=== PATIENT | female | born 1945 | race Caucasian/White ===

== ENCOUNTER → 2019-05-17 15:01 | Outpatient (BNVA) | payer MEDICARE, SELFPAY | PROVIDERS: Family Provider Family Medicine; PCP Family Medicine; Referring Provider Licensed Practical Nurse; Visit Provider Psychiatry & Neurology Neurology | DX: M54.12 Radiculopathy, cervical region (principal) | CPT/HCPCS: 95886; 95910 ==

== ENCOUNTER → 2019-06-06 13:05 | Outpatient (BNVA) | payer MEDICARE, SELFPAY | PROVIDERS: Family Provider Family Medicine; PCP Family Medicine; Visit Provider Urology | DX: N39.0 Urinary tract infection, site not specified (principal) | CPT/HCPCS: 81001 ==

== ENCOUNTER 2019-07-05 14:47 | Outpatient (CLI) | payer MEDICARE, SELFPAY ==
--- NOTE | 2019-07-05 15:00 | CT_ITS ---
WS: [id number] CT LUMBAR SPINE, noncontrast. HISTORY: Low back pain TECHNIQUE: Contiguous 2.5 mm axial imaging are performed. Sagittal and coronal reformats are submitte d and reviewed. All CT scans at [facility] use at least one of these dose optimization te chniques: automated exposure control; mA and/or kV adjustment per patient size (includes targeted exa ms where dose is matched to clinical indication); or iterative reconstruction. IV contrast: None DLP: 1766.95 mGycm COMPARISON: None available. Moderate RIGHT convex rotoscoliosis of the lumbar spine. No fractures. Osteopenia with endplate osteo phytes at all levels. Most severe stenosis at the L4-5 disc level. There is vacuum disc phenomenon at L4-5. No pars defects. L1-2: Asymmetric disc bulging, greatest to the RIGHT with no stenosis. There is an osteophyte from th e LEFT facet encroaching into the posterior LEFT lateral thecal sac. L2-3: Mild osteophytic ridging and disc bulging. No stenosis. L3-4: Diffuse asymmetric disc bulging extending greatest to the LEFT. No significant stenosis. L4-5: Moderate diffuse osteophytic ridging and disc bulging. Mild encroachment upon the ventral theca l sac. Very slight RIGHT subarticular recess stenosis and bilateral foraminal stenosis. L5-S1: Central disc protrusion with mild contact on the ventral thecal sac. No stenosis. Nerve roots exit without difficulty. Bilateral SI joint sclerosis. No erosions. Atherosclerosis within the aorta with no aneurysm. There i s a peripherally calcified mass extending posteriorly from the LEFT kidney. Additional more cortical- based mass inferiorly with calcification. Cannot accurately described on this unenhanced study. These are probably complex cysts. These masses were both identified on the CT from 03/16/2017 without incr ease in size. On the water treatment operator radiograph or loculated calcifications in the RIGHT pelvis which are probably related to uterine fibroid. Also noted on the prior radiograph of 12/10/2012 but the extent of calcification has increased. CT/CT lumbar spine wo con* [id number] IMPRESSION: 1. Moderate rotoscoliosis lumbar spine with convexity to the RIGHT. 2. Facet arthropathy and asymmetric disc bulging throughout the lumbar spine. No significant stenosis. 3. Mild RIGHT subarticular recess stenosis and bilateral foraminal stenosis at L4-5. 4. Central disc protrusion with minimal contact on the thecal sac at L5-S1. 5. Advanced degenerative disc disease at L4-5.
--- NOTE | 2019-07-05 15:15 | XR_ITS ---
WS: [id number] LATERAL LUMBAR SPINE: 3 view. Lateral radiographs are performed in upright neutral, flexion and extension to the patient's toleranc e. HISTORY: Low back pain COMPARISON: None available. Diffuse osteopenia. Posterior lumbar alignment is normal taking into consideration the rotation of th e vertebral bodies. Asymmetric disc space narrowing due to rotary scoliosis. With flexion and extensi on the alignment remains normal without instability. Facet joint arthropathy most significant at L4-5 and L5-S1. Scattered calcifications in aorta. XR/XR lumbar spine f/e only [id number] IMPRESSION: 1. Osteopenia. 2. Rotoscoliosis with no flexion/extension instability.
== END 2019-07-05 14:48 | disposition home or self-care (01) ==
LOC: RADWPI 14:52
PROVIDERS: Family Provider Family Medicine; PCP Family Medicine; Visit Provider Licensed Practical Nurse
DX: M85.88 Other specified disorders of bone density and structure, other site (principal); M48.061 Spinal stenosis, lumbar region without neurogenic claudication; M51.27 Other intervertebral disc displacement, lumbosacral region; M47.896 Other spondylosis, lumbar region; M54.5 Low back pain; M79.605 Pain in left leg
CPT/HCPCS: 72120; 72131

== ENCOUNTER 2019-08-28 09:26 | Outpatient (CLI) | payer MEDICARE, SELFPAY ==
--- NOTE | 2019-08-28 09:30 | MR_ITS ---
WS: [id number] MRI LUMBAR SPINE NONCONTRAST HISTORY: Low back pain COMPARISON: 07/05/2019 TECHNIQUE: Sagittal and axial multisequence imaging is submitted. Increase in cervical lordosis and thoracic kyphosis. Multilevel degenerative changes throughout the c ervical and thoracic spine without cord compression. Straightening of the normal lumbar lordosis. Mild S-shaped curvature thoracolumbar spine. Reactive ma rrow edema in the adjacent endplates of L4 and L5. No acute fracture. Mild disc space narrowing and desiccation throughout the lumbar spine, most significant at L4-5. Conus terminates normally at L1-2 disc level. L1-L2: Asymmetric LEFT facet joint arthritis. Facet osteophytes encroach upon the LEFT posterior thec al sac. No stenosis. L2-L3: Mild facet and ligamentum flavum arthritis. L3-L4: Very mild annular disc bulging and osteophytic ridging. Facet joint arthritis and ligamentum f lavum arthritis. No stenosis. L4-L5: Diffuse annular disc bulging and osteophytic ridging. Disc material contacts the subarticular recesses and the L5 nerve roots. Mild flattening of the ventral thecal sac. No focal disc protrusion. Mild subarticular recess stenosis. Nerve roots are becoming clumped within the periphery of the thec al sac. Mild RIGHT foraminal narrowing. L5-S1: Moderate central LEFT paracentral and proximal foraminal disc protrusion causing contact and d eformity of the ventral thecal sac. There is very slight contact and displacement of the LEFT S1 nerv e root. Bilateral foramina are widely patent. Incompletely visualized cyst within the LEFT kidney. MR/MR lumbar spine wo con* [id number] IMPRESSION: 1. Moderate degenerative disc disease and spondylosis with reactive marrow [place] ma at L4-5. 2. Moderate central and LEFT paracentral and proximal foraminal disc protrusio n at L5-S1. Very minimal contact with no displacement on the LEFT S1 nerve root . 3. Mild bilateral subarticular recess stenosis and mild RIGHT foraminal stenos is at L4-5. 4. 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 5. Thoracolumbar scoliosis. Mild curvature lumbar spine to the RIGHT.
== END 2019-08-28 09:27 | disposition home or self-care (01) ==
LOC: RADWPI 09:29
PROVIDERS: Family Provider Family Medicine; PCP Family Medicine; Visit Provider Licensed Practical Nurse
DX: M51.36 Other intervertebral disc degeneration, lumbar region (principal); M47.816 Spondylosis without myelopathy or radiculopathy, lumbar region; M51.27 Other intervertebral disc displacement, lumbosacral region; M41.85 Other forms of scoliosis, thoracolumbar region
CPT/HCPCS: 72148

== ENCOUNTER → 2020-03-05 13:07 | Outpatient (BNVA) | payer MEDICARE, SELFPAY | PROVIDERS: Family Provider Family Medicine; PCP Family Medicine; Visit Provider Licensed Practical Nurse | DX: M50.020 Cervical disc disorder with myelopathy, mid-cervical region, unspecified level (principal); M51.17 Intervertebral disc disorders with radiculopathy, lumbosacral region | CPT/HCPCS: 99213 ==

== ENCOUNTER → 2020-03-20 11:37 | Outpatient (BNVA) | payer MEDICARE, SELFPAY | PROVIDERS: Family Provider Family Medicine; PCP Family Medicine; Referring Provider Licensed Practical Nurse; Visit Provider Anesthesiology Pain Medicine | DX: M51.16 Intervertebral disc disorders with radiculopathy, lumbar region (principal); M47.816 Spondylosis without myelopathy or radiculopathy, lumbar region; M50.90 Cervical disc disorder, unspecified, unspecified cervical region; M47.812 Spondylosis without myelopathy or radiculopathy, cervical region; M79.605 Pain in left leg | CPT/HCPCS: 99204 ==

== ENCOUNTER → 2020-04-01 12:31 | Outpatient (BNVA) | payer MEDICARE, SELFPAY | PROVIDERS: Family Provider Family Medicine; PCP Family Medicine; Visit Provider Anesthesiology Pain Medicine | DX: M47.812 Spondylosis without myelopathy or radiculopathy, cervical region (principal); M54.2 Cervicalgia | CPT/HCPCS: 64490; 64491; 64492; J3490 ==

== ENCOUNTER → 2020-04-15 09:49 | Outpatient (BNVA) | payer MEDICARE, SELFPAY | PROVIDERS: Family Provider Family Medicine; PCP Family Medicine; Visit Provider Anesthesiology Pain Medicine | DX: M54.2 Cervicalgia (principal); M54.5 Low back pain; M79.605 Pain in left leg; M47.812 Spondylosis without myelopathy or radiculopathy, cervical region; M47.816 Spondylosis without myelopathy or radiculopathy, lumbar region; M51.16 Intervertebral disc disorders with radiculopathy, lumbar region | CPT/HCPCS: 99214 ==

== ENCOUNTER → 2020-04-23 13:48 | Outpatient (BNVA) | payer MEDICARE, SELFPAY | PROVIDERS: Family Provider Family Medicine; PCP Family Medicine; Visit Provider Anesthesiology Pain Medicine | DX: G89.29 Other chronic pain (principal); M50.90 Cervical disc disorder, unspecified, unspecified cervical region | CPT/HCPCS: 62321; J1100 ==

== ENCOUNTER 2020-04-30 09:43 | Outpatient (CLI) | payer MEDICARE, SELFPAY ==
--- NOTE | 2020-04-30 09:51 | MM_ITS ---
WS: [id number] BILATERAL DIGITAL SCREENING MAMMOGRAPHY WITH CAD CLINICAL INFORMATION: SCREENING HISTORY: Screening mammogram. No current complaints. COMPARISON: TECHNIQUE: Bilateral CC and MLO views. FINDINGS: Scattered fibroglandular densities bilaterally. No suspicious focal mass, asymmetry, calcifications, or architectural distortion. No evidence of malignancy. A few stable punctate calcifications. MM/[place] [id number] IMPRESSION: BI-RADS: 2-Benign FOLLOW UP: 1 Year Follow-up Recommend return to annual screening mammography.
== END 2020-04-30 09:44 | disposition home or self-care (01) ==
LOC: RADSHAW 09:47
PROVIDERS: PCP Family Medicine; Visit Provider Family Medicine
DX: Z12.31 Encounter for screening mammogram for malignant neoplasm of breast (principal)
CPT/HCPCS: 77067

== ENCOUNTER 2020-08-05 16:44 | Outpatient (CLI) | payer MEDICARE, SELFPAY ==
--- NOTE | 2020-08-05 17:09 | XRR_ITS ---
PROCEDURE INFORMATION: Exam: XR Chest Exam date and time: 08/05/2020 5:17 PM Age: 75 years old Clinical indication: Cough and shortness of breath; Additional info: S. O. B TECHNIQUE: Imaging protocol: XR of the chest. Views: 2 views. COMPARISON: CR Chest 1 [place] [id number] 11/14/2018 10:53 AM FINDINGS: Lungs: Subtle atelectasis/airspace disease adjacent to the left heart border. Lungs are otherwise well aerated. Pleural spaces: Unremarkable. No pleural effusion. No pneumothorax. Heart/Mediastinum: Unremarkable. No cardiomegaly. Bones/joints: Unremarkable. XR/XR chest 2V* [id number] IMPRESSION: Subtle atelectasis/airspace disease adjacent to the left heart border. Lungs are otherwise well aerated. Follow-up suggested
== END 2020-08-05 16:45 | disposition home or self-care (01) ==
LOC: RAD 16:50
PROVIDERS: PCP Family Medicine; Visit Provider Specialist
DX: R06.02 Shortness of breath (principal)
CPT/HCPCS: 71046

== ENCOUNTER → 2021-06-03 13:08 | Outpatient (BNVA) | payer MEDICARE, SELFPAY | PROVIDERS: PCP Family Medicine; Visit Provider Urology | DX: N39.0 Urinary tract infection, site not specified (principal) | CPT/HCPCS: 81003 ==

== ENCOUNTER 2021-07-14 12:41 | Outpatient (CLI) | payer MEDICARE, SELFPAY ==
--- NOTE | 2021-07-14 13:09 | MM_ITS ---
WS: [id number] SCREENING 3D TOMOSYNTHESIS DIGITAL MAMMOGRAM WITH CAD HISTORY: SCREENING COMPARISON: 04/30/2020, 12/28/2018 and 12/06/2017 Bilateral CC and MLO views submitted. Computer aided detection analyzed. Breast composition: There are scattered areas of fibroglandular density. Region of architectural distortion and slight spiculation in the upper outer quadrant of the LEFT talat ast near 11-12 o'clock. This is at the mid to posterior depth. Otherwise no additional changes. MM/[place] [id number] IMPRESSION: BI-RADS: 0-Incomplete: Need additional imaging evaluation FOLLOW UP: Need Additional Imaging LEFT breast: Spot compression views (CC and MLO). True ML. Ultrasound to follow if abnormality persists.
== END 2021-07-14 12:42 | disposition home or self-care (01) ==
PROVIDERS: PCP Family Medicine; Visit Provider Family Medicine
DX: Z12.31 Encounter for screening mammogram for malignant neoplasm of breast (principal)
CPT/HCPCS: 77063; 77067

== ENCOUNTER 2021-08-07 08:04 | Outpatient (CLI) | payer MEDICARE, SELFPAY ==
--- NOTE | 2021-08-07 | US_ITS ---
ADDITIONAL VIEWS LEFT MAMMOGRAM, 3-D. LEFT BREAST ULTRASOUND HISTORY: INCONCLUSIVE MAMMOGRAM COMPARISON: 07/14/2021, 04/30/2020 and 12/28/2018 LEFT MAMMOGRAM: Spot compression views and true ML. Spiculated asymmetry persists at 12:00. This is a very superficial asymmetry and slightly spiculated, best seen on the CC projection. Asymmetry persists with additional views. LEFT BREAST ULTRASOUND 2-D and color Doppler imaging submitted. Ultrasound is directed to the 12:00. At 12:00 there is a focal area of shadowing with distortion of the soft tissues and hypoechoic mass. Margins are partially obscured due to the extensive shadowing and distortion. This area measures approximately 8 x 8 mm. The true measurement may be larger as portion of the mass is obscured by shadowing. IMPRESSION: BI-RADS: 4-Suspicious Finding-Biopsy Should Be Considered FOLLOW UP: Biopsy Recommended Ultrasound-guided biopsy recommended of the LEFT breast mass with shadowing at 12:00, 4 cm from the nipple. Notified Quan Garvey MD at 08/07/2021 9:38 AM. Unsuccessful attempt contacting Dr. Garvey through his office at this time. [facility]
--- NOTE | 2021-08-07 08:16 | MM_ITS ---
WS: [id number] ADDITIONAL VIEWS LEFT MAMMOGRAM, 3-D. LEFT BREAST ULTRASOUND HISTORY: INCONCLUSIVE MAMMOGRAM COMPARISON: 07/14/2021, 04/30/2020 and 12/28/2018 LEFT MAMMOGRAM: Spot compression views and true ML. Spiculated asymmetry persists at 12:00. This is a very superficial asymmetry and slightly spiculated, best seen on the CC projection. Asymmetry persists with additional views. LEFT BREAST ULTRASOUND 2-D and color Doppler imaging submitted. Ultrasound is directed to the 12:00. At 12:00 there is a focal area of shadowing with distortion of t he soft tissues and hypoechoic mass. Margins are partially obscured due to the extensive shadowing an d distortion. This area measures approximately 8 x 8 mm. The true measurement may be larger as portio n of the mass is obscured by shadowing. MM/[place] [id number] IMPRESSION: BI-RADS: 4-Suspicious Finding-Biopsy Should Be Considered FOLLOW UP: Biopsy Recommended Ultrasound-guided biopsy recommended of the LEFT breast mass with shadowing at 12:00, 4 cm from the nipple. Notified Quan Garvey MD at 08/07/2021 9:38 AM. Unsuccessful attempt contact ing Dr. Garvey through his office at this time.
== END 2021-08-07 08:05 | disposition home or self-care (01) ==
LOC: RAD 08:06
PROVIDERS: PCP Family Medicine; Visit Provider Family Medicine
DX: N64.89 Other specified disorders of breast (principal); R92.8 Other abnormal and inconclusive findings on diagnostic imaging of breast
CPT/HCPCS: 76642; 77061

== ENCOUNTER 2021-08-25 07:53 | Outpatient (CLI) | payer MEDICARE, SELFPAY ==
--- NOTE | 2021-08-25 08:08 | US_ITS ---
WS: [id number] ULTRASOUND-GUIDED LEFT BREAST BIOPSY HISTORY: BREAST MASS COMPARISON: 08/07/2021, Procedure, risks and complications are explained to the patient. Medications are reviewed. Consent is obtained. The mass in the LEFT breast is localized with ultrasound. Skin is cleansed with ChloraPrep and anesth etized with 1% buffered lidocaine. Small dermatome is made. Under sterile conditions mass is biopsied with a 14-gauge Achieve needle. Multiple core biopsies are performed. Material placed in formalin an d sent to pathology for review. No complications encountered. Breast tissue marker (Bard ultrasound enhanced ribbon): Single. Patient left the radiology suite with no complications. Patient is instructed to return to [facility] or critical access hospital with any concerns. US/[place] [id number] IMPRESSION: 1. Uncomplicated core needle biopsy LEFT breast mass at 12:00, 4 cm from the n ipple. PATHOLOGY: Benign breast tissue with stromal sclerosis and discrete plasma cell population. RECOMMENDATION: Consider ultrasound-guided localization with surgical removal d ue to suspicious imaging findings. Imaging findings in the pathology report are not completely concordant. Please see pathology final diagnosis comment.
== END 2021-08-25 07:54 | disposition home or self-care (01) ==
LOC: RAD 07:55
PROVIDERS: PCP Family Medicine; Visit Provider Family Medicine
DX: N63.25 Unspecified lump in the left breast, overlapping quadrants (principal)
CPT/HCPCS: 19083; 88305; 88342

== ENCOUNTER 2021-08-27 11:49 | Outpatient (CLI) | payer MEDICARE, SELFPAY ==
--- NOTE | 2021-08-27 12:41 | XRR_ITS ---
PROCEDURE INFORMATION: Exam: XR Osseous Survey; Complete Axial And Appendicular Skeleton Exam date and time: 08/27/2021 12:47 PM Age: 76 years old Clinical indication: Condition or disease; Condition/disease: Plasuracytoma TECHNIQUE: Imaging protocol: Radiological examination. Complete osseous survey. Axial and appendicular skeleton. Total images: 13 COMPARISON: CR Cervical Spine Flex/Ext [id number] 02/20/2019 3:14 PM FINDINGS: Bones/joints: Spinal degenerative changes are evident. Mild compression deformity noted at T6 felt to be chronic. Osteopenia without osteolytic nor osteoblastic lesions. Soft tissues: Unremarkable. Lungs: Trace bibasilar atelectasis or scar. Organs: Calcifications seen within the right pelvis consistent with degenerative and fibroid. Vasculature: Atherosclerosis is evident. XR/XR bone survey* [id number] IMPRESSION: Osteopenia without osteolytic nor osteoblastic lesions.
[2021-08-27 12:53] LABS: LAB Peripheral Smear Sent for Review
== END 2021-08-27 11:50 | disposition home or self-care (01) ==
PROVIDERS: PCP Family Medicine; Visit Provider Family Medicine
DX: C90.30 Solitary plasmacytoma not having achieved remission (principal); M85.80 Other specified disorders of bone density and structure, unspecified site
CPT/HCPCS: 77075

== ENCOUNTER 2021-09-25 06:00 | Outpatient (CLI) | payer MEDICARE, SELFPAY ==
[2021-10-06 10:15] LABS: Miscellaneous Test See Scanned Lab Rpt
== END 2021-09-25 06:01 | disposition home or self-care (01) ==
LOC: OPS 02-02 19:26
PROVIDERS: PCP Family Medicine; Visit Provider Surgery
DX: N63.20 Unspecified lump in the left breast, unspecified quadrant (principal)
CPT/HCPCS: 88307; 88342; 88361; 88374

== ENCOUNTER 2021-10-16 07:02 | Day surgery (SDC) | payer MEDICARE, SELFPAY ==
[2021-10-15 14:29] VITALS: BMI 22.6
[2021-10-16 07:51] VITALS: BP 143/83; PULSE 55; RESP 18; TEMP 36.4; O2SAT 98
--- NOTE | 2021-10-16 07:59 | SUR.PHASEI ---
0757-patient transported to [facility], will complete preparation for surgery when she returns
--- NOTE | 2021-10-16 08:18 | NM_ITS ---
WS: [id number] NUCLEAR MEDICINE SENTINEL LYMPH NODE IMAGING HISTORY: LEFT breast sentinel node evaluation. COMPARISON: None available. TECHNIQUE: The patient was injected with 1.02 mCi of Technetium 99 ultra filtered sulfur colloid. Inj ection is intradermal in a periareolar location. Four aliquots are used. NM/NM sentinel node inject [id number] IMPRESSION: Uncomplicated LEFT breast sentinel node injection.
--- NOTE | 2021-10-16 08:25 | PC.NURSE ---
Left Breast [place] Node injection of 1.02 mCi Tc99m Filtered Sulfur Colloid was completed at 08:[address] Cummings.
[2021-10-16] MEDS: sodium chloride 0.9% 1,000 ML 30 ML IV (08:31)
--- NOTE | 2021-10-16 08:49 | W.PM.OPSUD ---
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 PLANNED PROCEDURE: Operation Date: 10/16/21 09:20 Proposed Procedures p Sentinal Lymph Node Biopsy(Not Applicable) - Ismael Khan MD
[2021-10-16 09:23] LABS: Blood Urea Nitrogen 9 mg/dL (8-23); Calcium 8.9 mg/dL (8.5-10.5); Carbon Dioxide 28 mmol/L (22-29); Chloride 102 mmol/L (98-107); Glucose 107 mg/dL (65-115); Osmolality Calculated 291 mOsm/kg (285-295); Sodium 141 mmol/L (136-145)
--- NOTE | 2021-10-16 09:25 | ANES.PREANE2 ---
Pre-Anesthetic Assessment Height/Weight: Height 1.73 m Weight 67.585 kg Temp Pulse Resp BP Pulse Ox 97.6 F 55 L 18 143/83 98 10/16/21 07:51 10/16/21 07:51 10/16/21 07:51 10/16/21 07:51 10/16/21 07:51 Preop Diagnosis: Infiltrating lobular carcinoma of the left breast. Operation Date: 10/16/21 09:20 Proposed Procedures p Sentinal Lymph Node Biopsy(Not Applicable) - Ismael Khan MD Familial anesthetic complications: none Was Beta Minal taken within 24 hours: Yes Was Clonidine taken within 24 hours: N/A Last intake: Intake Last Liquid Date 10/15/21 Last Liquid Time 20:30 Last Solid Date 10/15/21 Last Solid Time 19:00 Social No alcohol and No tobacco Exam alert, oriented x 3, clear to auscultation bilaterally and regular rate & rhythm Airway Submandibular: within normal limits Cervical ROM: within normal limits Mallampati: Class II Dentition: caps and full CV/HEM Hypertension GI Gastroesophageal Reflux Disease Neuropsych Anxiety Anesthetic Plan ASA status: 2 Anesthesia: General Medications/Allergies Home Medications Medication Instructions Recorded Confirmed Last Taken Type fluticasone propionate 50 2 spray INTRANASAL BID ml 06/06/19 10/16/21 10/15/21 History mcg/actuation nasal spray,suspension lorazepam 1 mg tablet 1 mg PO DAILY PRN 30 Days #30 tab 11/20/19 10/16/21 10/15/21 22:00 Rx losartan 25 mg tablet 25 mg PO DAILY #90 tab 04/11/20 10/16/21 10/16/21 07:00 Rx omeprazole 20 mg capsule,delayed 20 mg PO DAILY cap 06/03/21 10/16/21 10/16/21 07:00 History release atenolol 50 mg tablet 50 mg PO DAILY #90 tab 06/12/21 10/16/21 10/15/21 22:00 Rx Allergies Allergy/AdvReac Type Severity Reaction Status Date / Time codeine Allergy Mild vomit Verified 10/16/21 07:42 hydrocodone Allergy Mild vomiting Verified 10/16/21 07:42 latex Allergy rash,itch Verified 10/16/21 07:42 Current Medications Generic Name Dose Route Start Last Admin Trade Name Freq PRN Reason Stop Dose Admin Sodium Chloride 1,000 mls @ 30 mls/hr 10/16/21 07:45 10/16/21 08:31 Sodium Chloride 0.9% IV 10/17/21 07:44 30 mls/hr .Q24H MAMADOU Administration PFSH Anesthesia Medical History Cervical disc disorder with myelopathy of mid-cervical region Cervical radiculopathy Essential hypertension Intervertebral disc disorder with radiculopathy of lumbosacral region Surgical History H/O cataract extraction H/O dilation and curettage H/O resection of small bowel S/P tonsillectomy Family History Mother Heart disease Father Heart disease Sister Stroke Social History Smoking and tobacco status: former smoker Quit status (tobacco): has quit using tobacco Year quit tobacco: 2010 [id number] Second hand smoke exposure: Yes Smoking risk assessment/counseling performed?: Yes Alcohol intake: never Lives independently: Yes Household members: none Housing: House Marital status: / service: No Current occupational status: retired Pets and animals: Yes History of recent travel: No Current gender identity: Female Data Anesthesia : 10/16/21 08:32 BMP 10/16/21 08:32 Sodium 141 Chloride 102 Carbon Dioxide 28 BUN 9 Creatinine 0.5 Glucose 107 Calcium 8.9 Cardiac Studies: No Data to Display
--- NOTE | 2021-10-16 09:43 | P.OP_ITS ---
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 Post-op diagnosis: Same. Procedure done: Left axillary sentinel lymph node biopsy. Specimens removed/disposition: Left axillary sentinel lymph node. Surgeon: General Surgery Ismael Khan MD Anesthesia: MAC Estimated blood loss: 1 mL. Complications: None. Procedure: The patient was brought to the operating room and was placed in a supine position on the operating room table. The patient had undergone radioactive tracer injection in radiology preoperatively. A monitored anesthetic was induced. The left axilla was prepped and draped in a sterile fashion. The gamma probe was used to find the hot spot in the mid?inferior axilla. A combination of 1% lidocaine and 0.5% bupivacaine with 1-200,000 parts epinephrine was used for local anesthesia throughout the procedure. A curvilinear incision was carried out over the hot spot of the axilla. Cautery and blunt dissection were used to traverse the subcutaneous tissue and the axilla was entered. Using a combination of inspection and the gamma probe, the hot lymph node was found and was completely removed using blunt dissection and cautery. The lymph node registered counts of 240 on the field. Further in spection of the axilla with the gamma probe revealed all counts less than 10. The wound was irrigated with saline. A suture of 3-0 Vicryl was used to bring the deeper tissue together and the skin was approximated using a running subcuticular suture of 4-0 Vicryl. Benzoin and Steri-Strips were placed over the wound and a sterile bandage followed. The patient was taken to the recovery area in stable condition postoperatively.
[2021-10-16 09:49] VITALS: BP 124/82; PULSE 87; RESP 21; TEMP 36.2; O2SAT 94
[2021-10-16 09:54] VITALS: BP 126/81; PULSE 92; RESP 18; O2SAT 97
[2021-10-16 09:59] VITALS: BP 125/90; PULSE 76; RESP 18; TEMP 36.2; O2SAT 96
[2021-10-16 09:59] LABS: Anion Gap 15.3 (5-19); Potassium 4.3 mmol/L (3.5-5.1)
[2021-10-16 10:05] VITALS: BP 153/109; PULSE 80; RESP 17; TEMP 36.3; O2SAT 94
[2021-10-16 10:40] VITALS: BP 150/101; PULSE 72; RESP 18; TEMP 36.4; O2SAT 96
--- NOTE | 2021-10-16 15:00 | ANE.PACU2 ---
Inpatient post-anesthesia follow up: Airway intact: Yes Vital signs: Temperature 97.6 F Pulse Rate 72 Respiratory Rate 18 Blood Pressure 150/101 Pulse Oximetry 96 Oxygen Delivery Me thod Room Air Oxygen Flow Rate Fraction of Inspir ed Oxygen Hydration adequate: Yes Nausea and vomiting: No Pain level: 2 Mental status: Baseline
== END 2021-10-16 11:04 | disposition home or self-care (01) ==
PROVIDERS: Anesthesiology; PCP Family Medicine; Visit Provider Surgery
PROC: (CPT 38500; principal; 2021-10-16 09:20)
DX: C50.912 Malignant neoplasm of unspecified site of left female breast (principal); M19.90 Unspecified osteoarthritis, unspecified site; K21.9 Gastro-esophageal reflux disease without esophagitis; I10 Essential (primary) hypertension; Z86.010 Personal history of colon polyps; Z87.891 Personal history of nicotine dependence; F41.9 Anxiety disorder, unspecified; Z82.49 Family history of ischemic heart disease and other diseases of the circulatory system
CPT/HCPCS: 38500; 36415; 38792; 80048; 88307; 88342; A9541; J2704; J3010; J3490; J7030

== ENCOUNTER 2021-10-22 14:07 | Oncology outpatient (recurring) (ONCR) | payer MEDICARE, SELFPAY | END 2021-10-22 23:59 | disposition home or self-care (01) | PROVIDERS: PCP Family Medicine; Visit Provider Internal Medicine Medical Oncology | DX: C50.812 Malignant neoplasm of overlapping sites of left female breast (principal); Z17.0 Estrogen receptor positive status [ER+] | CPT/HCPCS: 99204 ==

== ENCOUNTER 2021-10-28 11:12 | Oncology outpatient (recurring) (ONCR) | payer MEDICARE, SELFPAY ==
--- NOTE | 2021-10-28 14:04 | N.ONRAD NP_ITS ---
Radiation Oncology Consultation Patient Name: Abbi Engel Date of : 1945 Date of Service: 10/28/2021 Attending Physician: Toro Mcgraw M.D. Abbi Engel was seen in consultation this morning at the request of Rylan Giles M.D. for consideration of adjuvant breast radiotherapy for the management of a recently diagnosed early stage breast cancer. A screening mammogram ordered on July 14, 2021 identified architectural distortion in the upper-outer quadrant of the left breast. A left diagnostic mammogram (independently visualized in synapse) obtained on August 07, 2021 demonstrated persistence of the spiculated mass Ultrasonography confirmed a hypoechoic lesion with shadowing measuring 8 mm x 8 mm at the 12 o'clock position, 4 cm from the nipple. An ultrasound-guided core biopsy completed on August 25, 2021 diagnosed an invasive, ductal carcinoma. A left partial mastectomy was performed on September 25, 2021 by Alfonso Khan M.D. The pathology report described a 1.9 cm, grade 2, invasive lobular carcinoma. The surgical margins were negative for malignancy (anterior margin less than 1 mm). A left axillary sentinel lymph node biopsy was completed on October 16, 2021. There was no evidence of metastatic disease within the harvested lymph node. The Breast Cancer Prognostic Profile identified estrogen receptor positivity (99%), progesterone receptor positivity (99%), and negative for HER2. The KI???67 was 2%. The Oncotype DX Breast Recurrence Score was pending at the time of this consultation. She was evaluated today for adjuvant breast radiotherapy. I discussed the [place] [employer] on Cancer Staging and specifically the patient's pathologic stage IA (T1cN0) breast cancer, I also reviewed the National Comprehensive Cancer Network Guidelines endorsing the omission of breast irradiation in patients 70 years of age or older with estrogen receptor positive, clinically node-negative, T1-2 tumors who will receive adjuvant endocrine therapy. I summarized the randomized trial (CALGB 9343) that established this standard published in The [place] Journal of Medicine, The study demonstrated the addition of radiotherapy to endocrine therapy improved local control compared to endocrine therapy alone without an overall survival advantage. The patient would like to evaluate her treatment options prior to making a final decision. The patient's medical treatment was discussed with Rylan Giles M.D Signed by: Dr. Toro Mcgraw 10/28/2021 2:02:44 PM
== END 2021-11-23 23:59 | disposition home or self-care (01) ==
PROVIDERS: Absent Provider Internal Medicine Medical Oncology; PCP Family Medicine; Visit Provider Radiology Radiation Oncology
DX: C50.812 Malignant neoplasm of overlapping sites of left female breast (principal); Z17.0 Estrogen receptor positive status [ER+]; Z90.12 Acquired absence of left breast and nipple; Z79.818 Long term (current) use of other agents affecting estrogen receptors and estrogen levels; Z79.899 Other long term (current) drug therapy
CPT/HCPCS: 99205

== ENCOUNTER → 2021-11-19 11:36 | Outpatient (BNVA) | payer MEDICARE, SELFPAY | PROVIDERS: PCP Family Medicine; Visit Provider Specialist | DX: M50.020 Cervical disc disorder with myelopathy, mid-cervical region, unspecified level (principal); M79.601 Pain in right arm; M79.602 Pain in left arm | CPT/HCPCS: 95910; 95912 ==

== ENCOUNTER 2021-12-01 15:02 | Outpatient (CLI) | payer MEDICARE, SELFPAY ==
--- NOTE | 2021-12-01 15:30 | XR_ITS ---
WS: [id number] DEXA (DUAL ENERGY X-RAY ABSORPTIOMETRY) Bone mineral density was performed using a [employer] machine. HISTORY: baseline prior to treatment COMPARISON: None available. Lumbar spine BMD (L1-L4): 1.193 g/cm2 T score: 0.1 Z score: 1.8 Total hip BMD: Left: 0.990 g/cm2. T score: -0.1 Z score: 1.5 Right: 0.966 g/cm2. T score: -0.3 Z score: 1.3 10 year probability of a major osteoporotic fracture is 8.5%. XR/XR DEXA axial skeleton* [id number] IMPRESSION: NORMAL BONE MINERAL DENSITY based upon the WHO classification for females.
== END 2021-12-01 15:03 | disposition home or self-care (01) ==
LOC: RAD 15:02
PROVIDERS: PCP Family Medicine; Visit Provider Internal Medicine Medical Oncology
DX: C50.812 Malignant neoplasm of overlapping sites of left female breast (principal)
CPT/HCPCS: 77080

== ENCOUNTER 2021-12-02 12:04 | Oncology outpatient (recurring) (ONCR) | payer MEDICARE, SELFPAY | END 2021-12-24 23:59 | disposition home or self-care (01) | LOC: ONCMED 12:05 | PROVIDERS: Absent Provider Internal Medicine Medical Oncology; PCP Family Medicine; Visit Provider Radiology Radiation Oncology | DX: C50.812 Malignant neoplasm of overlapping sites of left female breast (principal); Z17.0 Estrogen receptor positive status [ER+]; Z79.811 Long term (current) use of aromatase inhibitors; Z79.899 Other long term (current) drug therapy | CPT/HCPCS: 99214 ==

== ENCOUNTER 2022-02-24 14:45 | Oncology outpatient (recurring) (ONCR) | payer MEDICARE, SELFPAY | END 2022-03-25 23:59 | disposition home or self-care (01) | PROVIDERS: PCP Family Medicine; Visit Provider Internal Medicine Medical Oncology | DX: C50.812 Malignant neoplasm of overlapping sites of left female breast (principal); Z17.0 Estrogen receptor positive status [ER+]; Z79.818 Long term (current) use of other agents affecting estrogen receptors and estrogen levels; Z87.891 Personal history of nicotine dependence; M25.59 Pain in other specified joint | CPT/HCPCS: 99214 ==

== ENCOUNTER 2022-06-15 14:26 | Oncology outpatient (recurring) (ONCR) | payer MEDICARE, SELFPAY | END 2022-06-23 23:59 | disposition home or self-care (01) | LOC: ONCMED 14:27 | PROVIDERS: PCP Family Medicine; Visit Provider Internal Medicine Medical Oncology | DX: C50.812 Malignant neoplasm of overlapping sites of left female breast (principal); Z17.0 Estrogen receptor positive status [ER+]; Z79.818 Long term (current) use of other agents affecting estrogen receptors and estrogen levels; M25.59 Pain in other specified joint; Z87.891 Personal history of nicotine dependence; I10 Essential (primary) hypertension; Z79.899 Other long term (current) drug therapy; R05.9 Cough, unspecified | CPT/HCPCS: 99214 ==

== ENCOUNTER 2022-08-10 12:33 | Outpatient (CLI) | payer MEDICARE, SELFPAY ==
--- NOTE | 2022-08-10 | MM_ITS ---
WS: [id number] Bilateral diagnostic 3D tomosynthesis digital mammogram, 08/10/2022 Clinical Data: LT BREAST CA Comparison: 08/07/2021, 07/14/2021, 04/30/2020, 12/28/2018, 12/06/2017, 11/25/2016, 11/19/2015, 11/13/2014, 2013, 10/24/2012, 09/29/2011, 09/25/2010, 09/09/2009, 09/04/2008, 09/06/2007, 09/01/2006. Findings: The lesion in the left breast at the 11 to 12:00 position has increased in size and on CC compression now measures 2.2 x 2.9 cm. with irregular borders. There are no calcifications associated with this lesion. On the MLO view the lesion now measures 1.2 x 2.9 cm. There is skin retraction seen on the ML O view overlying this lesion. Both breasts show fat replacement. The right breast is normal. MM/[place] [id number] Impression: 1. Increase in size and irregularity of the border in left breast lesion in the upper outer quadrant at the 11 to 12:00 position. 2. Recommend left breast ultrasound and consider lesion biopsy BIRADS: 4-Suspicious Finding-Biopsy Should Be Considered FOLLOW UP: See Report The CAD mold checker was used.
== END 2022-08-10 12:34 | disposition home or self-care (01) ==
PROVIDERS: PCP Family Medicine; Visit Provider Internal Medicine Medical Oncology
DX: Z12.31 Encounter for screening mammogram for malignant neoplasm of breast (principal); Z85.3 Personal history of malignant neoplasm of breast
CPT/HCPCS: 77062; G0279

== ENCOUNTER 2022-08-24 08:59 | Outpatient (CLI) | payer MEDICARE, SELFPAY ==
--- NOTE | 2022-08-24 09:30 | US_ITS ---
WS: [id number] ULTRASOUND LEFT BREAST HISTORY: abnormal mammogram COMPARISON: Diagnostic mammogram 08/10/2022, 08/07/2021 TECHNIQUE: 2-D and Doppler. Area of asymmetry noted on the recent mammogram corresponds to the postsurgical changes near the 12:0 0 axis. Changes are most consistent with a postoperative scarring. No suspicious mass. US/US breast LT limited* [id number] IMPRESSION: BI-RADS: 2-Benign FOLLOW-UP: 1 Year Follow-up Patient to return to annual diagnostic mammography. The mammographic abnormalit y described on 08/10/2022 is most consistent with postsurgical scar site. If a n ew palpable area arises should be reevaluated.
== END 2022-08-24 09:00 | disposition home or self-care (01) ==
PROVIDERS: PCP Family Medicine; Visit Provider Internal Medicine Medical Oncology
DX: R92.8 Other abnormal and inconclusive findings on diagnostic imaging of breast (principal)
CPT/HCPCS: 76642

== ENCOUNTER 2022-09-15 13:41 | Oncology outpatient (recurring) (ONCR) | payer MEDICARE, SELFPAY | END 2022-09-23 23:59 | disposition home or self-care (01) | PROVIDERS: PCP Family Medicine; Visit Provider Internal Medicine Medical Oncology | DX: C50.812 Malignant neoplasm of overlapping sites of left female breast (principal); Z17.0 Estrogen receptor positive status [ER+]; M25.59 Pain in other specified joint; I10 Essential (primary) hypertension; Z79.818 Long term (current) use of other agents affecting estrogen receptors and estrogen levels; Z79.899 Other long term (current) drug therapy; Z87.891 Personal history of nicotine dependence | CPT/HCPCS: 99214 ==

== ENCOUNTER → 2023-01-11 14:58 | Outpatient (BNVA) | payer MEDICARE, SELFPAY | PROVIDERS: PCP Family Medicine; Visit Provider Emergency Medicine | DX: R50.9 Fever, unspecified (principal); R53.83 Other fatigue; J18.9 Pneumonia, unspecified organism | CPT/HCPCS: 87400; 87426 ==

== ENCOUNTER 2023-03-02 09:42 | Outpatient (CLI) | payer MEDICARE, SELFPAY ==
--- NOTE | 2023-03-02 10:00 | MM_ITS ---
WS: [id number] DIAGNOSTIC LEFT DIGITAL TOMOSYNTHESIS MAMMOGRAPHY WITH CAD. HISTORY: 6 month follow up biopsy COMPARISON: 08/10/2022, 08/07/2021 and 07/14/2021 Technique: CC, MLO and ML views. Breast composition: There are scattered areas of fibroglandular density. Stable focal post biopsy dane nges in the upper outer quadrant of the LEFT breast. No suspicious mass or calcifications. IMPRESSION: MM/[place] [id number] BI-RADS: 2-Benign FOLLOW UP: 1 Year Follow-up
== END 2023-03-02 09:43 | disposition home or self-care (01) ==
PROVIDERS: PCP Family Medicine; Visit Provider Internal Medicine Medical Oncology
DX: C50.812 Malignant neoplasm of overlapping sites of left female breast (principal)
CPT/HCPCS: 77061; G0279

== ENCOUNTER 2023-03-10 14:14 | Oncology outpatient (recurring) (ONCR) | payer MEDICARE, SELFPAY | END 2023-03-25 23:59 | disposition home or self-care (01) | PROVIDERS: PCP Family Medicine; Visit Provider Internal Medicine Medical Oncology | DX: C50.812 Malignant neoplasm of overlapping sites of left female breast (principal); Z17.0 Estrogen receptor positive status [ER+]; M25.59 Pain in other specified joint; I10 Essential (primary) hypertension; R05.9 Cough, unspecified; Z79.818 Long term (current) use of other agents affecting estrogen receptors and estrogen levels; Z79.899 Other long term (current) drug therapy; Z87.891 Personal history of nicotine dependence; Z79.811 Long term (current) use of aromatase inhibitors | CPT/HCPCS: 99213 ==

== ENCOUNTER → 2023-03-22 10:57 | Outpatient (BNVA) | payer MEDICARE, SELFPAY | PROVIDERS: PCP Family Medicine; Visit Provider Nurse Practitioner Family | DX: B35.1 Tinea unguium (principal); L57.8 Other skin changes due to chronic exposure to nonionizing radiation; L81.4 Other melanin hyperpigmentation; L71.8 Other rosacea; D18.01 Hemangioma of skin and subcutaneous tissue | CPT/HCPCS: 99214 ==

== ENCOUNTER 2023-08-18 09:12 | Outpatient (CLI) | payer OTHER, SELFPAY ==
--- NOTE | 2023-08-18 09:16 | MM_ITS ---
WS: [id number] BILATERAL SCREENING DIGITAL TOMOSYNTHESIS MAMMOGRAM WITH CAD HISTORY: annual surveillance COMPARISON: 03/02/2023 Bilateral CC and MLO views with tomosynthesis and synthetic mammography submitted. Computer aided det ection analyzed. Breast composition: There are scattered areas of fibroglandular density. No suspicious masses, microc alcifications or architectural distortion. IMPRESSION: MM/[place] [id number] BI-RADS: 1-Negative FOLLOW UP: 1 Year Follow-up
== END 2023-08-18 09:13 | disposition home or self-care (01) ==
LOC: RAD 09:12
PROVIDERS: PCP Family Medicine; Visit Provider Nurse Practitioner Family
DX: C50.812 Malignant neoplasm of overlapping sites of left female breast (principal); R92.323 Mammographic fibroglandular density, bilateral breasts
CPT/HCPCS: 77062; G0279

== ENCOUNTER 2023-10-04 11:54 | Oncology outpatient (recurring) (ONCR) | payer OTHER, MEDICARE, SELFPAY ==
[2023-10-04 12:50] LABS: Basophils # 0.1 10^3/uL (0.0-0.1); Basophils % 0.9 %; Eosinophils # 0.1 10^3/uL (0.0-0.8); Eosinophils % 1.6 %; Hematocrit 42.5 % (36-47); Lymphocytes # 0.9 10^3/uL (0.8-4.8); Lymphocytes % 12.6 %; Mean Corpuscular HGB Conc 33.4 g/dL (30-55); Mean Corpuscular Hemoglobin 30.3 pg (27-33); Mean Corpuscular Volume 90.8 fl (85-98); Mean Platelet Volume 9.7 fL (7.4-10.4); Monocytes # 0.6 10^3/uL (0.2-0.9); Monocytes % 9.4 %; Neutrophils # 5.13 10^3/uL (1.8-7.7); Neutrophils % 75.2 %; Nucleated Red Blood Cells % 0 %; Platelet Count 282 10^3/cmm (157-399); Red Blood Count 4.68 10^6/uL (3.85-5.65); White Blood Count 6.82 10^3/uL (3.29-11.43)
[2023-10-04 13:17] LABS: Alanine Aminotransferase 12 U/L (0-33); Albumin Level 4.5 g/dL (3.5-5.2); Alkaline Phosphatase 75 U/L (35-105); Anion Gap 14.5 (5-19); Aspartate Amino Transferase 13 U/L (0-32); Blood Urea Nitrogen 9 mg/dL (8-23); Calcium 9.4 mg/dL (8.5-10.5); Carbon Dioxide 32 mmol/L (22-29); Chloride 98 mmol/L (98-107); Globulin 2.9 g/dL (1.3-4.6); Glucose 97 mg/dL (65-115); Osmolality Calculated 289 mOsm/kg (285-295); Potassium 4.5 mmol/L (3.5-5.1); Sodium 140 mmol/L (136-145); Total Bilirubin 0.4 mg/dL (0.15-1.2); Total Protein 7.4 g/dL (6.6-8.7)
== END 2023-10-24 23:59 | disposition home or self-care (01) ==
PROVIDERS: Nurse Practitioner Family; PCP Family Medicine; Visit Provider Internal Medicine Medical Oncology
DX: C50.812 Malignant neoplasm of overlapping sites of left female breast (principal)
CPT/HCPCS: 36415; 80053; 85025

== ENCOUNTER 2023-12-06 12:32 | Outpatient (CLI) | payer MEDICARE, SELFPAY ==
--- NOTE | 2023-12-06 12:44 | XR_ITS ---
WS: [email or web address] DEXA (DUAL ENERGY X-RAY ABSORPTIOMETRY) Bone mineral density was performed using a Software 2000 machine. HISTORY: AI USE,POST MENOPASUAL COMPARISON: 12/01/2021. Lumbar spine BMD (L1-L4): 1.227 g/cm2 T score: 0.4 Z score: 2.1 Total hip BMD: Left: 0.994 g/cm2. T score: -0.1 Z score: 1.6 Right: 0.949 g/cm2. T score: -0.5 Z score: 1.3 10 year probability of a major osteoporotic fracture is 8.9%. Compared to the prior study from 12/01/2021. Lumbar spine bone mineral density has increased by 2.8%. Bilateral hips bone mineral density has decreased by 0.6%. XR/XR DEXA axial skeleton* [id number] IMPRESSION: NORMAL BONE MINERAL DENSITY based upon the WHO classification for females. Significant increase in bone mineral density within the lumbar spine since the prior study. No significant change of bone mineral density in the hips.
== END 2023-12-06 12:33 | disposition home or self-care (01) ==
LOC: RAD 12:35
PROVIDERS: PCP Family Medicine; Visit Provider Nurse Practitioner Family
DX: Z13.820 Encounter for screening for osteoporosis (principal); Z78.0 Asymptomatic menopausal state
CPT/HCPCS: 77080

== ENCOUNTER 2024-04-03 13:02 | Oncology outpatient (recurring) (ONCR) | payer MEDICARE, SELFPAY ==
[2024-04-03 13:32] LABS: Basophils # 0.1 10^3/uL (0.0-0.1); Basophils % 1.3 %; Eosinophils # 0.1 10^3/uL (0.0-0.8); Eosinophils % 2.6 %; Hematocrit 42.1 % (36-47); Lymphocytes # 0.9 10^3/uL (0.8-4.8); Lymphocytes % 18.8 %; Mean Corpuscular HGB Conc 33.5 g/dL (30-55); Mean Corpuscular Hemoglobin 29.9 pg (27-33); Mean Corpuscular Volume 89.4 fl (85-98); Mean Platelet Volume 9.8 fL (7.4-10.4); Monocytes # 0.6 10^3/uL (0.2-0.9); Monocytes % 13.4 %; Neutrophils # 2.93 10^3/uL (1.8-7.7); Neutrophils % 63.5 %; Nucleated Red Blood Cells % 0 %; Platelet Count 255 10^3/cmm (157-399); Red Blood Count 4.71 10^6/uL (3.85-5.65); Red Cell Distribution Width 13.5 % (12.1-15.1); White Blood Count 4.62 10^3/uL (3.29-11.43)
[2024-04-03 13:54] LABS: Alanine Aminotransferase < 5 U/L (0-33); Albumin Level 4.4 g/dL (3.5-5.2); Alkaline Phosphatase 92 U/L (35-105); Anion Gap 15.1 (5-19); Aspartate Amino Transferase 15 U/L (0-32); Blood Urea Nitrogen 8 mg/dL (8-23); Calcium 9.5 mg/dL (8.5-10.5); Carbon Dioxide 30 mmol/L (22-29); Chloride 102 mmol/L (98-107); Creatinine Clr Calc Pharmacy 61.1147; Globulin 2.4 g/dL (1.3-4.6); Glucose 111 mg/dL (65-115); Osmolality Calculated 295 mOsm/kg (285-295); Potassium 4.1 mmol/L (3.5-5.1); Sodium 143 mmol/L (136-145); Total Bilirubin 0.5 mg/dL (0.15-1.2); Total Protein 6.8 g/dL (6.6-8.7)
== END 2024-04-25 23:59 | disposition home or self-care (01) ==
PROVIDERS: PCP Family Medicine; Visit Provider Nurse Practitioner Family
DX: C50.812 Malignant neoplasm of overlapping sites of left female breast (principal); Z17.0 Estrogen receptor positive status [ER+]; Z79.818 Long term (current) use of other agents affecting estrogen receptors and estrogen levels; Z79.899 Other long term (current) drug therapy; Z87.891 Personal history of nicotine dependence; Z79.811 Long term (current) use of aromatase inhibitors
CPT/HCPCS: 36415; 80053; 85025; 99214

== ENCOUNTER 2024-04-17 07:43 | Outpatient (CLI) | payer MEDICARE, SELFPAY ==
--- NOTE | 2024-04-17 07:51 | MM_ITS ---
WS: [email or web address] DIAGNOSTIC LEFT DIGITAL TOMOSYNTHESIS MAMMOGRAPHY WITH CAD. HISTORY: surveillance COMPARISON: 08/18/2023, 03/02/2023, 08/07/2021, 07/14/2021 and prior ultrasound 08/24/2022 Technique: CC, MLO and ML views. Breast composition: There are scattered areas of fibroglandular density. Minimal postoperative changes in the upper outer quadrant of the LEFT breast. Very minimal skin thick ening. No mass or nodule. No progression of skin thickening. Normal appearance. MM/MM diag LT tomosynthesis [id number] IMPRESSION: BI-RADS: 2 - Benign. FOLLOW UP: 1 Year Follow-up
== END 2024-04-17 07:44 | disposition home or self-care (01) ==
PROVIDERS: PCP Family Medicine; Visit Provider Family Medicine
DX: C50.812 Malignant neoplasm of overlapping sites of left female breast (principal); R92.323 Mammographic fibroglandular density, bilateral breasts; Z98.890 Other specified postprocedural states
CPT/HCPCS: 77061; G0279

== ENCOUNTER → 2024-04-24 15:20 | Outpatient (BNVA) | payer MEDICARE, SELFPAY | PROVIDERS: PCP Family Medicine | DX: L71.8 Other rosacea (principal); B35.1 Tinea unguium; L57.8 Other skin changes due to chronic exposure to nonionizing radiation; L81.4 Other melanin hyperpigmentation; L82.1 Other seborrheic keratosis; D18.01 Hemangioma of skin and subcutaneous tissue | CPT/HCPCS: 99214 ==

== ENCOUNTER → 2024-05-31 12:57 | Outpatient (BNVA) | payer MEDICARE, SELFPAY | PROVIDERS: PCP Family Medicine; Visit Provider Nurse Practitioner Family | DX: L57.8 Other skin changes due to chronic exposure to nonionizing radiation (principal); L81.4 Other melanin hyperpigmentation; L57.0 Actinic keratosis | CPT/HCPCS: 17000; 99213 ==

== ENCOUNTER 2024-08-18 08:04 | Outpatient (CLI) | payer MEDICARE, SELFPAY ==
--- NOTE | 2024-08-18 08:30 | MM_ITS ---
WS: [id number] VIEWS: MLO, CC, and ML views both breasts. 3D digital tomosynthesis is also included in this exam. Comparisons: 09/01/2006, 09/06/2007, 09/09/2009, 09/04/2008, 09/25/2010, 09/29/2011, 10/24/2012, 10/26/2013, 11/13/2014, 11/19/2015, 11/25/2016, 12/06/2017, 12/28/2018, 04/30/2020, 08/07/2021, 08/10/2022, 07/14/2021, 08/18/2023. Findings: The breasts are almost entirely fatty. No suspicious mass, tumor calcification or architectural distortion. Stable appearing nodules in both breasts. MM/MM diag BI tomosynthesis [id number] Impression: BI-RADS: 2 - Benign. FOLLOW-UP: 1 Year Follow-up This mammogram was also analyzed by the Computer Aided Detection System R2 Imag e [employer].
== END 2024-08-18 08:05 | disposition home or self-care (01) ==
LOC: RAD 08:06
PROVIDERS: PCP Family Medicine; Visit Provider Nurse Practitioner Family
DX: C50.812 Malignant neoplasm of overlapping sites of left female breast (principal); R92.313 Mammographic fatty tissue density, bilateral breasts; N63.20 Unspecified lump in the left breast, unspecified quadrant; N63.10 Unspecified lump in the right breast, unspecified quadrant
CPT/HCPCS: 77062; G0279

== ENCOUNTER 2024-10-02 13:16 | Oncology outpatient (recurring) (ONCR) | payer MEDICARE, SELFPAY ==
[2024-10-02 13:49] LABS: Basophils # 0.1 10^3/uL (0.0-0.1); Basophils % 1.5 %; Eosinophils # 0.1 10^3/uL (0.0-0.8); Eosinophils % 3.5 %; Hematocrit 40.7 % (36-47); Lymphocytes # 0.8 10^3/uL (0.8-4.8); Lymphocytes % 23.5 %; Mean Corpuscular HGB Conc 33.2 g/dL (30-55); Mean Corpuscular Hemoglobin 29.2 pg (27-33); Mean Corpuscular Volume 88.1 fl (85-98); Mean Platelet Volume 9.9 fL (7.4-10.4); Monocytes # 0.4 10^3/uL (0.2-0.9); Monocytes % 12.2 %; Neutrophils # 2.03 10^3/uL (1.8-7.7); Nucleated Red Blood Cells % 0 %; Platelet Count 248 10^3/cmm (157-399); Red Blood Count 4.62 10^6/uL (3.85-5.65); Red Cell Distribution Width 13.4 % (12.1-15.1); White Blood Count 3.44 10^3/uL (3.29-11.43)
[2024-10-02 14:03] LABS: Alanine Aminotransferase 6 U/L (0-33); Albumin Level 4.3 g/dL (3.5-5.2); Alkaline Phosphatase 95 U/L (35-105); Aspartate Amino Transferase 12 U/L (0-32); Blood Urea Nitrogen 10 mg/dL (8-23); Calcium 9.1 mg/dL (8.5-10.5); Carbon Dioxide 27 mmol/L (22-29); Chloride 103 mmol/L (98-107); Globulin 2.5 g/dL (1.3-4.6); Glucose 95 mg/dL (65-115); Osmolality Calculated 291 mOsm/kg (285-295); Sodium 141 mmol/L (136-145); Total Bilirubin 0.5 mg/dL (0.15-1.2); Total Protein 6.8 g/dL (6.6-8.7)
== END 2024-10-23 23:59 | disposition home or self-care (01) ==
PROVIDERS: Nurse Practitioner Family; PCP Family Medicine; Visit Provider Internal Medicine Medical Oncology
DX: C50.812 Malignant neoplasm of overlapping sites of left female breast (principal); Z17.0 Estrogen receptor positive status [ER+]; Z79.811 Long term (current) use of aromatase inhibitors
CPT/HCPCS: 36415; 80053; 85025; 99214

== ENCOUNTER → 2024-10-12 10:08 | Outpatient (BNVA) | payer MEDICARE, SELFPAY | PROVIDERS: PCP Family Medicine; Referring Provider Family Medicine; Visit Provider Specialist | DX: R20.2 Paresthesia of skin (principal) | CPT/HCPCS: 95911 ==

== ENCOUNTER 2025-04-02 10:56 | Oncology outpatient (recurring) (ONCR) | payer MEDICARE, SELFPAY ==
[2025-04-02 11:18] LABS: Hematocrit 42.7 % (36-47); Hemoglobin 14.30 g/dL (11.27-16.99); Mean Corpuscular HGB Conc 33.5 g/dL (30-55); Mean Corpuscular Hemoglobin 29.2 pg (27-33); Mean Corpuscular Volume 87.1 fl (85-98); Nucleated Red Blood Cells % 0 %; Platelet Count 269 10^3/cmm (157-399); Red Blood Count 4.90 10^6/uL (3.85-5.65); White Blood Count 4.65 10^3/uL (3.29-11.43)
[2025-04-02 11:51] LABS: Alanine Aminotransferase 14 U/L (0-33); Albumin Level 4.3 g/dL (3.5-5.2); Alkaline Phosphatase 97 U/L (35-105); Anion Gap 13.1 (5-19); Aspartate Amino Transferase 17 U/L (0-32); Blood Urea Nitrogen 8 mg/dL (8-23); CA 15-3 19.2 U/mL (0-25); Calcium 9.4 mg/dL (8.5-10.5); Carbon Dioxide 29 mmol/L (22-29); Chloride 103 mmol/L (98-107); Globulin 2.8 g/dL (1.3-4.6); Glucose 106 mg/dL (65-115); Osmolality Calculated 291 mOsm/kg (285-295); Potassium 4.1 mmol/L (3.5-5.1); Sodium 141 mmol/L (136-145); Total Protein 7.1 g/dL (6.6-8.7)
== END 2025-04-25 23:59 | disposition home or self-care (01) ==
PROVIDERS: PCP Family Medicine; Visit Provider Internal Medicine Medical Oncology
DX: C50.812 Malignant neoplasm of overlapping sites of left female breast (principal); Z17.0 Estrogen receptor positive status [ER+]; Z79.811 Long term (current) use of aromatase inhibitors; Z79.899 Other long term (current) drug therapy; Z87.891 Personal history of nicotine dependence
CPT/HCPCS: 36415; 80053; 85025; 86300; 99213